=== PATIENT | female | born 1980 | race Hispanic/Latino ===

== ENCOUNTER 2018-03-24 11:52 | Emergency (ER) | payer SELFPAY ==
--- NOTE | 2018-03-24 12:37 | ER ---
Nurse's Notes [facility] Name: Es Keith Age: 37 yrs Sex: Female : 1980 Arrival Date: 03/24/2018 Time: 11:56 Bed Waiting Private MD: Unknown, Unknown Diagnosis: Unspecified otitis externa, right ear Presentation: 03/24 12:29 Presenting complaint: Presenting complaint: Patient states: i have pain on my R ear for hj 2 weeks ; went to doctor in [place] and gave me a shot; its not getting better and it has not getting any better; states, i cant use any drop because i have a whole R ear;. 12:31 Transition of care: patient was not received from another setting of care. Onset of hj symptoms was March 24, 2018. Risk Assessment: Do you want to hurt yourself or someone else? Patient reports no desire to harm self or others. Initial Sepsis Screen: Does the patient meet any 2 criteria? No. Patient's initial sepsis screen is negative. Does the patient have a suspected source of infection? No. Patient's initial sepsis screen is negative. Care prior to arrival: None. 12:31 Method Of Arrival: Ambulatory 12:31 Acuity: GRANT 4 hj Triage Assessment: 12:36 General: Appears in no apparent distress. uncomfortable, Behavior is calm, cooperative, hj appropriate for age. Pain: Complains of pain in right ear. 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 - Social history:: Smoking status: Patient/guardian denies using tobacco, Patient/guardian denies using alcohol. - Ebola Screening: : Patient negative for fever greater than or equal to 101.5 degrees Fahrenheit, and additional compatible Ebola Virus Disease symptoms Patient denies exposure to infectious person Patient denies travel to an Ebola-affected area in the 21 days before illness onset. Screenin:37 Abuse screen: Denies threats or abuse. Denies injuries from another. Nutritional hj screening: No deficits noted. Tuberculosis screening: No symptoms or risk factors identified. Fall Risk None identified. Vital Signs: 12:34 BP 171 / 100; Pulse 76; Resp 18; Temp 97.8(TE); Pulse Ox 97% on R/A; Weight 74.84 kg; hj Height 5 ft. 4 in. (162.56 cm); 12:34 Body Mass Index 28.32 (74.84 kg, 162.56 cm) ED Course: 11:56 Patient arrived in ED. ag5 11:57 Unknown, Unknown is Private Physician. ag5 12:27 Esthela Rice FNP-C [facility]. kb 12:27 Miah Benjamin MD is Attending Physician. kb 12:33 Triage completed. hj 12:37 Arm band placed on right wrist. hj 12:37 Patient has correct armband on for positive identification. Bed in low position. Call hj light in reach. Side rails up X 1. Adult w/ patient. 12:40 No provider procedures requiring assistance completed. Patient did not have IV access hj during this emergency room visit. Administered Medications: No medications were administered Outcome: 12:37 Discharge ordered by MD. kb 12:40 Discharged to home ambulatory, with family. hj 12:40 Condition: stable 12:40 Discharge instructions given to patient, family, Instructed on discharge instructions, follow up and referral plans. medication usage, Demonstrated understanding of instructions, follow-up care, medications, Prescriptions given X 1. 12:40 Patient left the ED. Signatures: Esthela Rice FNP-C FNP-Ckb Joaquin, Henry RN RN Niall Hutson ag5 Corrections: (The following items were deleted from the chart) 12:33 12:29 Presenting complaint: [facility]
--- NOTE | 2018-03-24 12:37 | EDPHYS ---
Physician Documentation [facility] Name: Es Keith Age: 37 yrs Sex: Female : 1980 Arrival Date: 03/24/2018 Time: 11:56 Bed Waiting Private MD: Unknown, Unknown ED Physician Miah Benjamin HPI: 03/24 13:17 This 37 yrs old Female presents to ER via Ambulatory with complaints of EAR kb ACHE. 13:17 The patient presents with drainage, that is purulent, pain, moderate. The complaints kb affect the right ear. Onset: The symptoms/episode began/occurred 2 week(s) ago. Modifying factors: The symptoms are alleviated by nothing, the symptoms are aggravated by nothing. Associated signs and symptoms: The patient has no apparent associated signs or symptoms. Severity of symptoms: At their worst the symptoms were moderate in the emergency department the symptoms are unchanged. The patient has not experienced similar symptoms in the past. The patient has not recently seen a physician. 13:19 Pt reports ear pain and drainage for 2 weeks. Went to her dr and was given 4 antibiotic kb injections and oral steroids, but they aren't helping. . 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 - Social history:: Smoking status: Patient/guardian denies using tobacco, Patient/guardian denies using alcohol. - Ebola Screening: : Patient negative for fever greater than or equal to 101.5 degrees Fahrenheit, and additional compatible Ebola Virus Disease symptoms Patient denies exposure to infectious person Patient denies travel to an Ebola-affected area in the 21 days before illness onset. ROS: 13:14 Constitutional: Negative for fever, chills, and weight loss, Cardiovascular: Negative kb for chest pain, palpitations, and edema, Respiratory: Negative for shortness of breath, cough, wheezing, and pleuritic chest pain, Abdomen/GI: Negative for abdominal pain, nausea, vomiting, diarrhea, and constipation, Back: Negative for injury and pain, MS/Extremity: Negative for injury and deformity, Skin: Negative for injury, rash, and discoloration, Neuro: Negative for headache, weakness, numbness, tingling, and seizure. 13:14 ENT: Positive for drainage from ear(s), ear pain, Negative for injury or acute deformity, foreign body sensation, Gum pain hearing loss, pulling at ears, Teeth pain tinnitus, nasal discharge, rhinorrhea, sinus congestion. Exam: 13:14 Constitutional: This is a well developed, well nourished patient who is awake, alert, kb and in no acute distress. Head/Face: Normocephalic, atraumatic. Neck: Trachea midline, no thyromegaly or masses palpated, and no cervical lymphadenopathy. Supple, full range of motion without nuchal rigidity, or vertebral point tenderness. No Meningismus. Chest/axilla: Normal chest wall appearance and motion. Nontender with no deformity. No lesions are appreciated. Cardiovascular: Regular rate and rhythm with a normal S1 and S2. No gallops, murmurs, or rubs. Normal PMI, no JVD. No pulse deficits. Respiratory: Lungs have equal breath sounds bilaterally, clear to auscultation and percussion. No rales, rhonchi or wheezes noted. No increased work of breathing, no retractions or nasal flaring. Abdomen/GI: Soft, non-tender, with normal bowel sounds. No distension or tympany. No guarding or rebound. No evidence of tenderness throughout. Skin: Warm, dry with normal turgor. Normal color with no rashes, no lesions, and no evidence of cellulitis. MS/ Extremity: Pulses equal, no cyanosis. Neurovascular intact. Full, normal range of motion. Neuro: Awake and alert, GCS 15, oriented to person, place, time, and situation. Cranial nerves II-XII grossly intact. Motor strength 5/5 in all extremities. Sensory grossly intact. Cerebellar exam normal. Normal gait. 13:14 ENT: Ear canal(s): purulent discharge, that is moderate, in the right canal, swelling, that is moderate, of the right canal. Vital Signs: 12:34 BP 171 / 100; Pulse 76; Resp 18; Temp 97.8(TE); Pulse Ox 97% on R/A; Weight 74.84 kg; hj Height 5 ft. 4 in. (162.56 cm); 12:34 Body Mass Index 28.32 (74.84 kg, 162.56 cm) hj MDM: 12:27 Patient medically screened. kb 13:12 Data reviewed: vital signs, nurses notes. Data interpreted: Pulse oximetry: on room air kb is 97 %. Interpretation: normal. Counseling: I had a detailed discussion with the patient and/or guardian regarding: the historical points, exam findings, and any diagnostic results supporting the discharge/admit diagnosis, the need for outpatient follow up, an ENT specialist, to return to the emergency department if symptoms worsen or persist or if there are any questions or concerns that arise at home. Administered Medications: No medications were administered Disposition: 16:59 Co-signature as Attending Physician, Miah Benjamin MD. rn Disposition: 03/24/18 12:37 Discharged to Home. Impression: Unspecified otitis externa, right ear. - Condition is Stable. - Discharge Instructions: Otitis Externa, [id number], Ear Drops, Adult, [id number]. - Prescriptions for Ciprodex 0.3- 0.1 % Otic Drops, Suspension - instill 4 drop by OTIC route every 12 hours for 7 days , for ears ONLY; 1 Container. - Medication Reconciliation Form, Thank You Letter, Antibiotic Education, Prescription Opioid Use form. - Follow up: Emergency Department; When: As needed; Reason: Worsening of condition. Follow up: Private Physician; When: 2 - 3 days; Reason: Recheck today's complaints, Continuance of care, Re-evaluation by your physician. Signatures: Esthela Rice, ENTERPRISE SYSTEMS MANAGER-C ENTERPRISE SYSTEMS MANAGER-Ckb Miah Benjamin MD MD rn Joaquin, Henry, RN RN hj Corrections: (The following items were deleted from the chart) 12:40 12:37 03/24/2018 12:37 Discharged to Home. Impression: Unspecified otitis externa, hj right ear. Condition is Stable. Forms are Medication Reconciliation Form, Thank You Letter, Antibiotic Education, Prescription Opioid Use. Follow up: Emergency Department; When: As needed; Reason: Worsening of condition. Follow up: Private Physician; When: 2 - 3 days; Reason: Recheck today's complaints, Continuance of care, Re-evaluation by your physician. kb
== END 2018-03-24 12:40 | disposition home or self-care (01) ==
LOC: ER 11:52
DX: H60.91 Unspecified otitis externa, right ear (principal)
CPT/HCPCS: 99282

== ENCOUNTER 2019-02-03 23:27 | Emergency (ER) | payer SELFPAY ==
[2019-02-04] MEDS ORDERED: ONDANSETRON 4 MG/2 ML VIAL ONE (00:19)
[2019-02-04] MEDS ORDERED: NA CHLORIDE 0.9% 1,000 ML ONE (00:19)
[2019-02-04 01:12] LABS: Absolute Lymphocytes (CBC) 3.9 K/uL (0.7-4.9); Basophils % 0.8 % (0-1.3); Hematocrit 40.8 % (36.0-45.0); Lymphocytes % 36.5 % (15.3-44.8); MPV 9.3 fL (7.6-11.3); RBC Red Blood Cell Count 4.65 M/uL (3.86-4.86)
[2019-02-04 01:14] LABS: Albumin 4.1 g/dL (3.4-5.0); Bilirubin Total 0.4 mg/dL (0.2-1.0); Potassium 3.2 mmol/L (3.5-5.1)
--- NOTE | 2019-02-04 01:50 | EDPHYS ---
Physician Documentation [facility] Name: Es Keith Age: 38 yrs Sex: Female : 1980 Arrival Date: 02/03/2019 Time: 23:36 Bed 5 Private MD: ED Physician Candelario Hidalgo HPI: 02/04 01:04 This 38 yrs old Female presents to ER via Ambulatory with complaints of tw4 Headache, Vomiting. 01:04 The patient complains of pain to the right ear and right caodaism. The patient describes tw4 the headache as pounding, a pressure. Onset: The symptoms/episode began/occurred 2 month(s) ago. Associated signs and symptoms: Pertinent positives: nausea, vomiting. Severity of symptoms: At its worst the pain was moderate, in the emergency department the pain is unchanged. Headache History: The patient has had previous headaches and this one is similar to previous episodes. The symptoms are alleviated by nothing. the symptoms are aggravated by nothing. The patient has not experienced similar symptoms in the past. Historical: - Allergies: 00:09 No Known Allergies; ea - Home Meds: 00:09 None [Active]; ea - PMHx: 00:09 None; ea - PSHx: 00:09 None; ea - Immunization history:: Adult Immunizations up to date. - Social history:: Smoking status: Patient uses tobacco products, denies chronic smoking, but will smoke occasionally. - Ebola Screening: : No symptoms or risks identified at this time. ROS: 01:04 Constitutional: Negative for fever, chills, and weight loss, Eyes: Negative for injury, tw4 pain, redness, and discharge, Cardiovascular: Negative for chest pain, palpitations, and edema, Respiratory: Negative for shortness of breath, cough, wheezing, and pleuritic chest pain, Abdomen/GI: Negative for abdominal pain, nausea, vomiting, diarrhea, and constipation, Back: Negative for injury and pain, Skin: Negative for injury, rash, and discoloration. 01:04 ENT: Positive for drainage from ear(s), ear pain. 01:04 Neuro: Positive for headache, Negative for altered mental status, dizziness, gait disturbance, numbness, seizure activity, speech changes, syncope, near syncope, tingling, tinnitus, tremor, visual changes, weakness. Exam: 01:04 Constitutional: This is a well developed, well nourished patient who is awake, alert, tw4 and in no acute distress. Head/Face: Normocephalic, atraumatic. Chest/axilla: Normal chest wall appearance and motion. Nontender with no deformity. No lesions are appreciated. Cardiovascular: Regular rate and rhythm with a normal S1 and S2. No gallops, murmurs, or rubs. Normal PMI, no JVD. No pulse deficits. Respiratory: Lungs have equal breath sounds bilaterally, clear to auscultation and percussion. No rales, rhonchi or wheezes noted. No increased work of breathing, no retractions or nasal flaring. Abdomen/GI: Soft, non-tender, with normal bowel sounds. No distension or tympany. No guarding or rebound. No evidence of tenderness throughout. Back: No spinal tenderness. No costovertebral tenderness. Full range of motion. MS/ Extremity: Pulses equal, no cyanosis. Neurovascular intact. Full, normal range of motion. Neuro: Awake and alert, GCS 15, oriented to person, place, time, and situation. Cranial nerves II-XII grossly intact. Motor strength 5/5 in all extremities. Sensory grossly intact. Cerebellar exam normal. Normal gait. 01:04 ENT: TM's: rupture, on the right, with purulent discharge. Vital Signs: 00:09 BP 134 / 117; Pulse 88; Resp 18; Temp 97.8; Pulse Ox 98% ; Weight 72.57 kg; Height 5 ea ft. 6 in. (167.64 cm); Pain 9/10; 01:45 BP 130 / 85; Pulse 80; Resp 18; Temp 98(TE); Pulse Ox 98% on R/A; ea 00:09 Body Mass Index 25.82 (72.57 kg, 167.64 cm) ea Gresham Coma Score: 01:04 Eye Response: spontaneous(4). Verbal Response: oriented(5). Motor Response: obeys tw4 commands(6). Total: 15. MDM: 00:11 Patient medically screened. tw4 01:04 Differential diagnosis: cluster headache, migraine, temporal arteritis, tension tw4 headache, trigeminal neuralgia. Data reviewed: vital signs, nurses notes. Counseling: I had a detailed discussion with the patient and/or guardian regarding: the historical points, exam findings, and any diagnostic results supporting the discharge/admit diagnosis, lab results, radiology results. 02/04 00:12 Order name: CBC with Diff; Complete Time: :52 tw4 02/04 01:52 Interpretation: Within normal limits. tw4 02/04 00:12 Order name: CMP; Complete Time: 01:52 tw4 02/04 01:52 Interpretation: Normal except: K 3.2; GLUC 128; GFR 75. tw4 02/04 00:12 Order name: CT Head Brain wo Cont tw4 Administered Medications: 00:25 Drug: Zofran 4 mg Route: IVP; Site: right antecubital; ea 00:48 Follow up: Response: No adverse reaction ao 00:25 Drug: NS 0.9% 1000 ml Route: IV; Rate: 1 bolus; Site: right antecubital; ea 01:30 Follow up: Response: No adverse reaction; IV Status: Completed infusion; IV Intake: ea 1000ml 02:07 Drug: Potassium Effervescent Tablet 50 mEq Route: PO; ea 02:07 Follow up: Response: Medication administered at discharge. ea Disposition: 02/04/19 01:49 Discharged to Home. Impression: Mastoiditis and related conditions, Central perforation of tympanic membrane, right ear. - Condition is Stable. - Discharge Instructions: Mastoiditis, Pediatric, Eardrum Perforation, [id number]. - Prescriptions for Augmentin 875- 125 mg Oral Tablet - take 1 tablet by ORAL route every 12 hours for 10 days; 20 tablet. Ciprodex 0.3- 0.1 % Otic Drops, Suspension - instill 4 drop by OTIC route every 12 hours for 7 days , for ears ONLY; 1 Container. - Medication Reconciliation Form, Thank You Letter, Antibiotic Education, Prescription Opioid Use form. - Follow up: Pura Person MD; When: Tomorrow; Reason: Recheck today's complaints, Continuance of care. - Problem is an ongoing problem. - Symptoms are unchanged. Signatures: Dispatcher [employer] Sarah Tomlinson RN RN Candelario Churchill MD MD tw4 Satish Henriquez RN Corrections: (The following items were deleted from the chart) 02:06 01:49 02/04/2019 01:49 Discharged to Home. Impression: Mastoiditis and related ea conditions; Central perforation of tympanic membrane, right ear. Condition is Stable. Forms are Medication Reconciliation Form, Thank You Letter, Antibiotic Education, Prescription Opioid Use. Follow up: Pura Person; When: Tomorrow; Reason: Recheck today's complaints, Continuance of care. Problem is an ongoing problem. Symptoms are unchanged. tw4
--- NOTE | 2019-02-04 01:50 | ER ---
Nurse's Notes [facility] Name: Es Keith Age: 38 yrs Sex: Female : 1980 Arrival Date: 02/03/2019 Time: 23:36 Bed 5 Private MD: Diagnosis: Mastoiditis and related conditions;Central perforation of tympanic membrane, right ear Presentation: 02/04 00:01 Presenting complaint: Patient states: Reports headache and pressure to right ear and ea right side of face on and off. Stated she had an episode of vomiting. She stated three weeks ago she was seen in [place] for her headache and was diagnosed with a perforated ear, she was prescribed antihistamines and pain medication. Reports there is a green mucus substance that comes out of her ear from time to time. Transition of care: patient was not received from another setting of care. Onset of symptoms was February 04, 2019. Risk Assessment: Do you want to hurt yourself or someone else? Patient reports no desire to harm self or others. Initial Sepsis Screen: Does the patient meet any 2 criteria? Systolic BP < 90 mmHg. Does the patient have a suspected source of infection? No. Patient's initial sepsis screen is negative. Care prior to arrival: Medication(s) given: Tylenol. 00:01 Method Of Arrival: Ambulatory ea 00:01 Acuity: GRANT 3 ea Triage Assessment: 00:10 Headache History: The patient has had previous headaches and this one is different than ea previous episodes, and this one is more severe than previous episodes. General: Appears in no apparent distress. Behavior is calm, cooperative, appropriate for age. Pain: Complains of pain in right side of head Pain currently is 9 out of 10 on a pain scale. Quality of pain is described as pressure, Pain began 3 hours ago. Also complains of nausea. Neuro: Level of Consciousness is awake, alert, obeys commands, Oriented to person, place, time, situation. Respiratory: Airway is patent Respiratory effort is even, unlabored, Respiratory pattern is regular, symmetrical. Derm: Skin is pink, warm \T\ dry. Historical: - Allergies: 00:09 No Known Allergies; ea - Home Meds: 00:09 None [Active]; ea - PMHx: 00:09 None; ea - PSHx: 00:09 None; ea - Immunization history:: Adult Immunizations up to date. - Social history:: Smoking status: Patient uses tobacco products, denies chronic smoking, but will smoke occasionally. - Ebola Screening: : No symptoms or risks identified at this time. Screenin:08 Abuse screen: Denies threats or abuse. Nutritional screening: No deficits noted. ea Tuberculosis screening: No symptoms or risk factors identified. Fall Risk None identified. Assessment: 00:10 Reassessment: see triage assessment. ea 01:30 Reassessment: Patient and/or family updated on plan of care and expected duration. Pain ea level reassessed. Patient is alert, oriented x 3, equal unlabored respirations, skin warm/dry/pink. 02:04 Reassessment: Patient and/or family updated on plan of care and expected duration. Pain ea level reassessed. Patient is alert, oriented x 3, equal unlabored respirations, skin warm/dry/pink. Discharge instruction given to patient, verbalized the understanding of instruction. Pt left ED ambulatory accompanied by family. Vital Signs: 00:09 BP 134 / 117; Pulse 88; Resp 18; Temp 97.8; Pulse Ox 98% ; Weight 72.57 kg; Height 5 ea ft. 6 in. (167.64 cm); Pain 9/10; 01:45 BP 130 / 85; Pulse 80; Resp 18; Temp 98(TE); Pulse Ox 98% on R/A; ea 00:09 Body Mass Index 25.82 (72.57 kg, 167.64 cm) ea Jerrell Coma Score: 01:04 Eye Response: spontaneous(4). Verbal Response: oriented(5). Motor Response: obeys tw4 commands(6). Total: 15. ED Course: 02/03 23:36 Patient arrived in ED. cf2 02/04 00:01 Sarah [place], RN is Primary Nurse. ea 00:08 Triage completed. ea 00:09 Patient has correct armband on for positive identification. Bed in low position. Call ea light in reach. Side rails up X2. 00:11 Candelario Hdialgo MD is Attending Physician. tw4 00:12 Arm band placed on right wrist. Patient placed in an exam room, on a stretcher, on ea pulse oximetry. 00:54 CT Head Brain wo Cont In Process Unspecified. EDMS 01:48 Pura Person MD is Referral Physician. tw4 02:03 No provider procedures requiring assistance completed. IV discontinued, intact, ea bleeding controlled, No redness/swelling at site. Pressure dressing applied. Administered Medications: 00:25 Drug: Zofran 4 mg Route: IVP; Site: right antecubital; ea 00:48 Follow up: Response: No adverse reaction ao 00:25 Drug: NS 0.9% 1000 ml Route: IV; Rate: 1 bolus; Site: right antecubital; ea 01:30 Follow up: Response: No adverse reaction; IV Status: Completed infusion; IV Intake: ea 1000ml 02:07 Drug: Potassium Effervescent Tablet 50 mEq Route: PO; ea 02:07 Follow up: Response: Medication administered at discharge. ea Intake: 01:30 IV: 1000ml; Total: 1000ml. ea Outcome: 01:49 Discharge ordered by . tw4 02:05 Discharged to home ambulatory, with family. ea 02:05 Condition: stable 02:05 Discharge instructions given to patient, Instructed on discharge instructions, follow up and referral plans. medication usage, Demonstrated understanding of instructions, follow-up care, medications, Prescriptions given X 2. 02:06 Patient left the ED. ea Signatures: Dispatcher [employer] Satish Regan, RN RN Sarah Garner RN Candelario Corrales ea, MD MD tw4 Guillermo Leiva 2
[2019-02-04] MEDS ORDERED: POTASSIUM 25 MEQ EFFERV TAB ONE (01:54)
[2019-02-04 02:19] VITALS: BP 130/85; TEMP 98; O2SAT 98
--- NOTE | 2019-02-04 10:51 | RAD REPORT ---
EXAM DESCRIPTION: CT - Head Brain Wo Cont - 02/04/2019 1:24 am CLINICAL HISTORY: HEADACHE COMPARISON: None. TECHNIQUE: CT HEAD WITHOUT IV CONTRAST on 02/04/2019 12:12 AM CDT This exam was performed according to our departmental dose-optimization program, which includes autom ated exposure control, adjustment of the mA and/or kV according to patient size and/or use of iterati ve reconstruction technique. FINDINGS: There is no acute hemorrhage, mass effect or midline shift. Traore-white differentiation is preserved. There is no hydrocephalus. There is no significant volume loss for age. The calvarium is intact. Orbits and globes are unremarkable. The paranasal sinuses are clear. There i s fluid throughout the right mastoid air cells. IMPRESSION: Right mastoid effusion. No acute intracranial findings. Electronically signed by: Bc Mercer MD 02/04/2019 12:56 AM CDT Due to temporary technical issues with the PACS/Fluency reporting system, reports are being signed by the in house radiologist as a courtesy to ensure prompt reporting. The interpreting radiologist is f ully responsible for the content of the report.
== END 2019-02-04 02:06 | disposition home or self-care (01) ==
LOC: ER 23:27
DX: H70.90 Unspecified mastoiditis, unspecified ear (principal); H72.01 Central perforation of tympanic membrane, right ear; Z72.0 Tobacco use
CPT/HCPCS: 36415; 70450; 80053; 85025; 96361; 96374; 99284; J2405; J7030

== ENCOUNTER 2019-04-19 20:24 | Emergency (ER) | payer SELFPAY ==
[2019-04-19 21:22] LABS: Absolute Lymphocytes (CBC) 3.6 K/uL (0.7-4.9); Basophils % 0.8 % (0-1.3); Hematocrit 40.1 % (36.0-45.0); Lymphocytes % 41.2 % (15.3-44.8)
[2019-04-19] MEDS ORDERED: FAMOTIDINE 20 MG/2 ML VIAL IV ONE (21:22)
[2019-04-19] MEDS ORDERED: NA CHLORIDE 0.9% 1,000 ML ONE (21:22)
[2019-04-19 21:42] LABS: ALT/SGPT 223 U/L (12-78); AST/SGOT 79 U/L (15-37); Albumin 3.7 g/dL (3.4-5.0); Alkaline Phosphatase 48 U/L (45-117); BUN Blood Urea Nitrogen 8 mg/dL (7-18); Bicarbonate 27 mmol/L (21-32); Bilirubin Direct 0.1 mg/dL (0-0.2); Bilirubin Total 0.4 mg/dL (0.2-1.0); Glucose Level 98 mg/dL (74-106); Lipase 141 U/L (73-393); Potassium 3.5 mmol/L (3.5-5.1); Protein, Total 7.6 g/dL (6.4-8.2); Sodium Level 139 mmol/L (136-145)
[2019-04-19 21:59] LABS: Urine Blood NEGATIVE (NEG); Urine Glucose NEGATIVE (NEG); Urine Protein NEGATIVE (NEG); Urine pH 5.5 (5.0-7.0)
--- NOTE | 2019-04-19 23:12 | ER ---
Nurse's Notes [facility] Name: Es Keith Age: 38 yrs Sex: Female : 1980 Arrival Date: 04/19/2019 Time: 20:26 Bed 18 Private MD: Diagnosis: Abdominal tenderness;Functional dyspepsia;Dermatitis, unspecified Presentation: 04/19 20:40 Presenting complaint: states: Epigastric pain and vomiting since last night. ca1 Rash on the umbilical area that started on the 14 of April that has gotten bigger since then. Reported fever last night. Transition of care: patient was not received from another setting of care. Onset of symptoms was April 18, 2019. Risk Assessment: Do you want to hurt yourself or someone else? Patient reports no desire to harm self or others. Initial Sepsis Screen: Does the patient meet any 2 criteria? No. Patient's initial sepsis screen is negative. Does the patient have a suspected source of infection? No. Patient's initial sepsis screen is negative. Care prior to arrival: None. 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 - Social history:: Smoking status: Patient uses tobacco products, denies chronic smoking, but will smoke occasionally. - Ebola Screening: : Patient negative for fever greater than or equal to 101.5 degrees Fahrenheit, and additional compatible Ebola Virus Disease symptoms Patient denies exposure to infectious person Patient denies travel to an Ebola-affected area in the 21 days before illness onset No symptoms or risks identified at this time. - Family history:: not pertinent. Screenin:18 Abuse screen: Denies threats or abuse. Denies injuries from another. Nutritional lp1 screening: No deficits noted. Tuberculosis screening: No symptoms or risk factors identified. Fall Risk None identified. Assessment: 21:00 General: Appears in no apparent distress. Behavior is calm, cooperative, appropriate lp1 for age. Pain: Complains of pain in right upper quadrant and left upper quadrant Pain currently is 0 out of 10 on a pain scale. Quality of pain is described as crampy, Is intermittent. Neuro: No deficits noted. Cardiovascular: No deficits noted. Respiratory: Respiratory effort is even, unlabored. GI: Abdomen is non-distended, Bowel sounds present X 4 quads. Abdomen is tender to palpation in right upper quadrant and left upper quadrant. : No signs and/or symptoms were reported regarding the genitourinary system. EENT: No signs and/or symptoms were reported regarding the EENT system. Derm: Skin is pink, warm \T\ dry. Rash noted that is red, on umbilical area. Musculoskeletal: No deficits noted. 21:33 Reassessment: Ultrasound at bedside. lp1 22:30 Reassessment: Patient appears in no apparent distress at this time. Patient and/or lp1 family updated on plan of care and expected duration. Pain level reassessed. Patient is alert, oriented x 3, equal unlabored respirations, skin warm/dry/pink. 23:30 Reassessment: Patient appears in no apparent distress at this time. No changes from lp1 previously documented assessment. Vital Signs: 20:43 BP 149 / 95; Pulse 75; Resp 16 S; Temp 98.5(O); Pulse Ox 100% on R/A; Weight 76.2 kg ca1 (R); Height 5 ft. 6 in. (167.64 cm) (R); Pain 8/10; 22:00 BP 163 / 97; Pulse 69; Resp 18; Pulse Ox 99% on R/A; lp1 23:00 BP 147 / 91; Pulse 71; Resp 16; Pulse Ox 98% on R/A; lp1 20:43 Body Mass Index 27.12 (76.20 kg, 167.64 cm) ca1 ED Course: 20:26 Patient arrived in ED. cl3 20:33 Clemente De Dios MD is Attending Physician. vasyl 20:42 Triage completed. ca1 20:43 Arm band placed on right wrist. ca1 21:00 Urine collected: clean catch specimen, clear. lp1 21:05 Sandy Shearer, LOPEZ is Primary Nurse. lp1 21:10 Inserted saline lock: 20 gauge in right antecubital area, using aseptic technique. lp1 Blood collected. 21:25 Patient has correct armband on for positive identification. Placed in gown. Pulse ox lp1 on. NIBP on. 22:13 US Abdomen Limited In Process Unspecified. EDMS 22:14 CT completed. Patient tolerated procedure well. Patient moved back from CT. mw3 22:44 CT Abd/Pelvis - IV Contrast Only In Process Unspecified. EDMS 23:07 Amanda Garcia MD is Referral Physician. [facility] 23:07 Jorgito Dhillon MD is Referral Physician. [facility] 23:58 No provider procedures requiring assistance completed. IV discontinued, No lp1 redness/swelling at site. Pressure dressing applied. Administered Medications: 21:24 Drug: NS 0.9% 1000 ml Route: IV; Rate: 1 bolus; Site: right antecubital; lp1 23:00 Follow up: IV Status: Completed infusion; IV Intake: 1000ml lp1 21:24 Drug: Pepcid 20 mg Route: IVP; Site: right antecubital; lp1 22:30 Follow up: Response: No adverse reaction lp1 Intake: 23:00 IV: 1000ml; Total: 1000ml. lp1 Outcome: 23:07 Discharge ordered by . [facility] 23:58 Discharged to home ambulatory, with significant other. lp1 23:58 Condition: good 23:58 Discharge instructions given to patient, Instructed on discharge instructions, follow up and referral plans. medication usage, Demonstrated understanding of instructions, follow-up care, medications, Prescriptions given X 4. 01/06 00:00 Patient left the ED. lp1 Signatures: Dispatcher [employer] EDWV Clemente De Dios MD MD cha Pena, Laura, RN RN lp1 Shantel Penaloza mw3 Sulema Weller RN RN ca1 Tamiko Baker cl3
--- NOTE | 2019-04-19 23:13 | EDPHYS ---
Physician Documentation [facility] Name: Es Keith Age: 38 yrs Sex: Female : 1980 Arrival Date: 04/19/2019 Time: 20:26 Bed 18 Private MD: ED Physician Clemente De Dios HPI: 04/19 21:00 This 38 yrs old Female presents to ER via Ambulatory with complaints of vasyl Abdominal Pain. 21:00 The patient presents with abdominal pain in the epigastric area, in the upper abdomen, vasyl in the periumbilical area. Onset: The symptoms/episode began/occurred 2 day(s) ago. The symptoms do not radiate. Associated signs and symptoms: none. Modifying factors: The symptoms are alleviated by nothing, the symptoms are aggravated by nothing. Severity of pain: At its worst the pain was mild moderate in the emergency department the pain has improved mildly. The patient has not experienced similar symptoms in the past. 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 - Social history:: Smoking status: Patient uses tobacco products, denies chronic smoking, but will smoke occasionally. - Ebola Screening: : Patient negative for fever greater than or equal to 101.5 degrees Fahrenheit, and additional compatible Ebola Virus Disease symptoms Patient denies exposure to infectious person Patient denies travel to an Ebola-affected area in the 21 days before illness onset No symptoms or risks identified at this time. - Family history:: not pertinent. ROS: 21:00 Constitutional: Negative for fever, chills, and weight loss, Eyes: Negative for injury, vasyl pain, redness, and discharge, ENT: Negative for injury, pain, and discharge, Neck: Negative for injury, pain, and swelling, Cardiovascular: Negative for chest pain, palpitations, and edema, Respiratory: Negative for shortness of breath, cough, wheezing, and pleuritic chest pain, Back: Negative for injury and pain, : Negative for injury, bleeding, discharge, and swelling, MS/Extremity: Negative for injury and deformity, Skin: Negative for injury, rash, and discoloration, Neuro: Negative for headache, weakness, numbness, tingling, and seizure, Psych: Negative for depression, anxiety, suicide ideation, homicidal ideation, and hallucinations, Allergy/Immunology: Negative for hives, rash, and allergies, Endocrine: Negative for neck swelling, polydipsia, polyuria, polyphagia, and marked weight changes, Hematologic/Lymphatic: Negative for swollen nodes, abnormal bleeding, and unusual bruising. 21:00 Abdomen/GI: Positive for abdominal pain, of the epigastric area, umbilical area and right upper quadrant. Exam: 21:00 Constitutional: This is a well developed, well nourished patient who is awake, alert, vasyl and in no acute distress. Head/Face: Normocephalic, atraumatic. Eyes: Pupils equal round and reactive to light, extra-ocular motions intact. Lids and lashes normal. Conjunctiva and sclera are non-icteric and not injected. Cornea within normal limits. Periorbital areas with no swelling, redness, or edema. ENT: Nares patent. No nasal discharge, no septal abnormalities noted. Tympanic membranes are normal and external auditory canals are clear. Oropharynx with no redness, swelling, or masses, exudates, or evidence of obstruction, uvula midline. Mucous membranes moist. Neck: Trachea midline, no thyromegaly or masses palpated, and no cervical lymphadenopathy. Supple, full range of motion without nuchal rigidity, or vertebral point tenderness. No Meningismus. Chest/axilla: Normal chest wall appearance and motion. Nontender with no deformity. No lesions are appreciated. Cardiovascular: Regular rate and rhythm with a normal S1 and S2. No gallops, murmurs, or rubs. Normal PMI, no JVD. No pulse deficits. Respiratory: Lungs have equal breath sounds bilaterally, clear to auscultation and percussion. No rales, rhonchi or wheezes noted. No increased work of breathing, no retractions or nasal flaring. Back: No spinal tenderness. No costovertebral tenderness. Full range of motion. MS/ Extremity: Pulses equal, no cyanosis. Neurovascular intact. Full, normal range of motion. Neuro: Awake and alert, GCS 15, oriented to person, place, time, and situation. Cranial nerves II-XII grossly intact. Motor strength 5/5 in all extremities. Sensory grossly intact. Cerebellar exam normal. Normal gait. Psych: Awake, alert, with orientation to person, place and time. Behavior, mood, and affect are within normal limits. 21:00 Abdomen/GI: Inspection: abdomen appears normal, Bowel sounds: normal, Palpation: mild abdominal tenderness, in the epigastric area, right upper quadrant and left upper quadrant, Liver: no appreciated palpable abnormalities, Hernia: not appreciated. Vital Signs: 20:43 BP 149 / 95; Pulse 75; Resp 16 S; Temp 98.5(O); Pulse Ox 100% on R/A; Weight 76.2 kg ca1 (R); Height 5 ft. 6 in. (167.64 cm) (R); Pain 8/10; 22:00 BP 163 / 97; Pulse 69; Resp 18; Pulse Ox 99% on R/A; lp1 23:00 BP 147 / 91; Pulse 71; Resp 16; Pulse Ox 98% on R/A; lp1 20:43 Body Mass Index 27.12 (76.20 kg, 167.64 cm) ca1 MDM: 20:33 Patient medically screened. [facility] 21:01 Data reviewed: vital signs, nurses notes, lab test result(s), radiologic studies, vasyl ultrasound. 04/19 20:59 Order name: Basic Metabolic Panel; Complete Time: 21:51 [facility] 04/19 20:59 Order name: CBC with Diff; Complete Time: 21:32 [facility] 04/19 20:59 Order name: Creatinine for Radiology; Complete Time: 21:42 [facility] 04/19 20:59 Order name: Hepatic Function; Complete Time: 21:51 [facility] 04/19 20:59 Order name: Lipase; Complete Time: 21:51 [facility] 04/19 20:59 Order name: Urine Culture [facility] 04/19 20:59 Order name: IV Saline Lock; Complete Time: 21:19 [facility] 04/19 20:59 Order name: Labs collected and sent; Complete Time: 21:19 [facility] 04/19 20:59 Order name: US Abdomen Limited [facility] 04/19 21:17 Order name: Urine Dipstick--Ancillary (enter results); Complete Time: 22:08 [place] 04/19 21:17 Order name: Urine --Ancillary (enter results); Complete Time: 22:08 [place] 04/19 21:33 Order name: CT Abd/Pelvis - IV Contrast Only [facility] 04/19 20:59 Order name: Urine Dipstick-Ancillary (obtain specimen); Complete Time: 21:19 [facility] 04/19 20:59 Order name: Urine Test (obtain specimen); Complete Time: 21:18 [facility] Administered Medications: 21:24 Drug: NS 0.9% 1000 ml Route: IV; Rate: 1 bolus; Site: right antecubital; lp1 23:00 Follow up: IV Status: Completed infusion; IV Intake: 1000ml lp1 21:24 Drug: Pepcid 20 mg Route: IVP; Site: right antecubital; lp1 22:30 Follow up: Response: No adverse reaction lp1 Disposition: 04/19/19 23:07 Discharged to Home. Impression: Abdominal tenderness, Functional dyspepsia, Dermatitis, unspecified. - Condition is Stable. - Discharge Instructions: Abdominal Pain, Adult, Rash, Abdominal Pain, Adult, [id number], Rash, [id number]. - Prescriptions for Bentyl 20 mg Oral Tablet - take 1 tablet by ORAL route every 6 hours As needed; 20 tablet. Keflex 500 mg Oral Capsule - take 1 capsule by ORAL route every 6 hours for 7 days; 28 capsule. Pepcid 20 mg Oral Tablet - take 1 tablet by ORAL route every 12 hours for 10 days; 20 tablet. Nystatin- Triamcinolone 100,000-0.1 unit/g-% Topical Cream - apply 1 application by TOPICAL route 2 times per day to navel area; 30 gram. - Medication Reconciliation Form, Thank You Letter, Antibiotic Education, Prescription Opioid Use form. - Follow up: Private Physician; When: 2 - 3 days; Reason: Recheck today's complaints, Continuance of care, Re-evaluation by your physician. Follow up: Amanda Garcia; When: 2 - 3 days; Reason: Recheck today's complaints, Re-evaluation by your physician. Follow up: Jorgito Dhillon MD; When: 2 - 3 days; Reason: Recheck today's complaints, Re-evaluation by your physician. - Problem is new. - Symptoms have improved. Signatures: Dispatcher [employer] Clemente Johnson MD MD cha Pena, Laura RN RN lp1 Sulema Weller RN RN ca1 Corrections: (The following items were deleted from the chart) 04/20 00:00 04/19 23:07 04/19/2019 23:07 Discharged to Home. Impression: Abdominal tenderness; lp1 Functional dyspepsia; Dermatitis, unspecified. Condition is Stable. Discharge Instructions: Abdominal Pain, Adult, Rash, Abdominal Pain, Adult, [id number], Rash, [id number]. Prescriptions for Bentyl 20 mg Oral Tablet - take 1 tablet by ORAL route every 6 hours As needed; 20 tablet, Keflex 500 mg Oral Capsule - take 1 capsule by ORAL route every 6 hours for 7 days; 28 capsule, Pepcid 20 mg Oral Tablet - take 1 tablet by ORAL route every 12 hours for 10 days; 20 tablet, Nystatin-Triamcinolone 100,000-0.1 unit/g-% Topical Cream - apply 1 application by TOPICAL route 2 times per day to navel area; 30 gram. and Forms are Medication Reconciliation Form, Thank You Letter, Antibiotic Education, Prescription Opioid Use. Follow up: Private Physician; When: 2 - 3 days; Reason: Recheck today's complaints, Continuance of care, Re-evaluation by your physician. Follow up: Amanda Garcia; When: 2 - 3 days; Reason: Recheck today's complaints, Re-evaluation by your physician. Follow up: Jorgito Dhillon; When: 2 - 3 days; Reason: Recheck today's complaints, Re-evaluation by your physician. Problem is new. Symptoms have improved. vasyl
[2019-04-20 01:37] VITALS: TEMP 98.5
[2019-04-20 01:40] VITALS: BP 147/91; O2SAT 98
--- NOTE | 2019-04-20 09:51 | RAD REPORT ---
EXAM DESCRIPTION: Abdomen Exam Limited CLINICAL HISTORY: The patient is 38 years old and is Female; ABD PAIN TECHNIQUE: Real-time ultrasound of the right upper quadrant with image documentation. COMPARISON: No relevant prior studies available. FINDINGS: LIVER: The liver is increased in echogenicity. GALLBLADDER: The gallbladder is distended. No gallbladder wall thickening or pericholecystic flu id. COMMON BILE DUCT: Unremarkable as visualized. No stones. No dilation. IMPRESSION: Distended gallbladder. No cholelithiasis. Electronically signed by: Sylvia Mercedes MD 04/19/2019 10:29 PM ABA TUTOR Due to temporary technical issues with the PACS/Fluency reporting system, reports are being signed by the in house radiologist as a courtesy to ensure prompt reporting. The interpreting radiologist is f ully responsible for the content of the report.
--- NOTE | 2019-04-20 10:22 | RAD REPORT ---
EXAM DESCRIPTION: CT ABDOMEN PELVIS WITH IV CONTRAST CLINICAL HISTORY: Epigastric pain and vomiting. COMPARISON: None. TECHNIQUE: CT scan of the abdomen and pelvis was performed with IV contrast. This exam was performed according to our departmental dose-optimization program, which includes automated exposure control, adjustment of the mA and/or kV according to patient size and/or use of iterative reconstruction techn ique. FINDINGS: The lung bases are clear. No pleural or pericardial effusions. There is no hiatal hernia. There is hepatic steatosis. The spleen, pancreas, gallbladder, adrenal glands, and kidneys are unrema rkable. No urinary stones are seen. The pelvic organs are also unremarkable. No small bowel obstruction. The appendix is normal. There is no evidence of diverticulitis. No intrap eritoneal free fluid or free air is identified. The aorta is normal caliber. No acute bony findings are seen. There is no pathologic body wall hernia . IMPRESSION: 1. No acute abdominal or pelvic findings. 2. Hepatic steatosis. Electronically signed by: Douglas Ch MD 04/19/2019 11:02 PM [facility] Due to temporary technical issues with the PACS/Fluency reporting system, reports are being signed by the in house radiologist as a courtesy to ensure prompt reporting. The interpreting radiologist is f ully responsible for the content of the report.
== END 2019-04-20 | disposition home or self-care (01) ==
LOC: ER 20:24
DX: K30 Functional dyspepsia (principal); L30.9 Dermatitis, unspecified; Z72.0 Tobacco use
CPT/HCPCS: 36415; 74177; 76705; 80048; 80076; 81003; 81025; 83690; 85025; 87086; 87088; 96361; 96374; 99284; J7030; Q9967